=== PATIENT | female | born 1950 | race African-American/Black ===

== ENCOUNTER 2018-12-20 20:22 | Emergency (ER) | payer SELFPAY ==
[~2018-12-20] VITALS: Ht 162.6 cm; Wt 122.9 kg
--- NOTE | 2018-12-20 20:33 | NUR ---
ED Nurse Note: Patient reports having chronic pain with increase of pain on the right posterior back x 2 weeks. Pt is AO x 4times, VSS, on room air no distress. ERMD seen Pt at bedside.
[2018-12-20] MEDS ORDERED: LOSARTAN POTAS100 MG ORAL (20:42)
[2018-12-20] MEDS ORDERED: HYDROCHLOROTHIA25 MG ORAL (20:42)
[2018-12-20] MEDS ORDERED: ASPIR 8181 MG ORAL (20:42)
[2018-12-20] MEDS ORDERED: HYDRALAZIN20 MG/1 ML IJ (20:42)
[2018-12-20] MEDS ORDERED: METFORMIN HYD1000 GM MC (20:42)
[2018-12-20] MEDS ORDERED: VOLTAREN25 MG PO (20:42)
[2018-12-20] MEDS ORDERED: LEVOTHYROXINE200 MCG IV (20:42)
[2018-12-20] MEDS ORDERED: LUBRICANT DRY E15 ML OP (20:42)
[2018-12-20] MEDS ORDERED: NYSTATIN-TRIAMC15 G2 TP (20:42)
[2018-12-20] MEDS ORDERED: ZANTAC150 MG ORAL (20:42)
[2018-12-20] MEDS ORDERED: GLIPIZIDE10 MG PO (20:42)
[2018-12-20] MEDS ORDERED: METHOCARBAMOL500 M1 PO (20:42)
[2018-12-20] MEDS ORDERED: Ketorolac 60mg Inj IM ONE (21:00)
[2018-12-20] MEDS ORDERED: Methocarbamol 750mg tab ORAL ONE (21:00)
--- NOTE | 2018-12-20 21:05 | Emergency Room Report ---
History of Present Illness General Chief Complaint: Back Pain-No Injury Source: Patient Present Illness HPI Patient presents with complaints of right lower back pain Reports that the pain has been ongoing for the past 4 days Slowly worsening over the past 2 days Denies any fall denies any chest pain or shortness of breath denies any fevers or chills Denies any dysuria frequency denies any Saddle paresthesia Patient reports that she endplates with a cane secondary to her knee problems Denies any radiation of the pain she feels it is worse with ambulation and better with rest Allergies: Coded Allergies: ACETAMINOPHEN (Verified Allergy, Mild, Itching, 12/20/18) Patient History Past Medical History: see triage record Pertinent Family History: none Now: No : 3 Para: 3 Reviewed Nursing Documentation: PMH: Agreed; PSxH: Agreed Nursing Documentation-PMH Hx Cardiac Problems: Yes - TAKES LOW DOSE ASPIRIN Hx Hypertension: Yes Hx Diabetes: Yes Hx Gastrointestinal Problems: Yes Hx Neurological Problems: Yes - ARTHRITIS; HYPOTHYROID Review of Systems All Other Systems: negative except mentioned in HPI Physical Exam Vital Signs Date Time Temp Pulse Resp B/P (MAP) Pulse Ox O2 Delivery O2 Flow Rate FiO2 12/20/18 20:29 98.1 92 16 133/81 (98) 93 Room Air Sp02 EP Interpretation: reviewed, normal General Appearance: no apparent distress - Patient however has grimacing secondary to pain Head: normocephalic, atraumatic Eyes: bilateral eye PERRL, bilateral eye EOMI ENT: normal pharynx Neck: full range of motion, supple Respiratory: lungs clear, no respiratory distress, no retraction Cardiovascular #1: regular rate, rhythm Gastrointestinal: non tender, soft Musculoskeletal: other - Tender on palpation of the right posterior superior iliac crest no obvious midline step-off. Sensory intact bilaterally Neurologic: alert, oriented x3, responsive, other - Patient flexion-extension of both feet intact Psychiatric: normal inspection Skin: no rash Lymphatic: no adenopathy Medical Decision Making Diagnostic Impression: Primary Impression: Back pain ER Course Given the initial history exam and presentation multiple differentials and consideration including but not limited to musculoskeletal, neurological, neurosurgical, vascular pathology Patient has fairly specific pinpoint discomfort to the Right posterior superior iliac crest region Given the age and presentation imaging and blood work is obtained on arrival CT imaging does reveal some arthritic changes along with foraminal stenosis Patient's blood work also revealed some mild anemia I did discuss this with the patient and she reports knowledge of anemia from past patient was provided CT imaging and blood work for her records on repeat evaluation feels significantly improved and is stable for close outpatient follow-up Labs Test 12/20/18 20:45 12/20/18 21:00 Urine Color Yellow Urine Appearance Clear Urine pH 6 (4.5-8.0) Urine Specific [place] 1.015 (1.005-1.035) Urine Protein Negative (NEGATIVE) Urine Glucose (UA) Negative (NEGATIVE) Urine Ketones Negative (NEGATIVE) Urine Blood Negative (NEGATIVE) Urine Nitrite Negative (NEGATIVE) Urine Bilirubin Negative (NEGATIVE) Urine Urobilinogen 4 MG/DL (0.0-1.0) Urine Leukocyte Esterase 1+ (NEGATIVE) Urine RBC 0-2 /HPF (0 - 2) Urine WBC 0-2 /HPF (0 - 2) Urine Squamous Epithelial Cells Few /LPF (NONE/OCC) Urine Bacteria Few /HPF (NONE) White Blood Count 12.1 K/UL (4.8-10.8) Red Blood Count 3.95 M/UL (4.20-5.40) Hemoglobin 9.5 G/DL (12.0-16.0) Hematocrit 28.9 % (37.0-47.0) Mean Corpuscular Volume 73 FL (80-99) Mean Corpuscular Hemoglobin 24.0 PG (27.0-31.0) Mean Corpuscular Hemoglobin Concent 32.7 G/DL (32.0-36.0) Red Cell Distribution Width 16.0 % (11.6-14.8) Platelet Count 349 K/UL (150-450) Mean Platelet Volume 6.0 FL (6.5-10.1) Neutrophils (%) (Auto) 45.1 % (45.0-75.0) Lymphocytes (%) (Auto) 46.4 % (20.0-45.0) Monocytes (%) (Auto) 6.1 % (1.0-10.0) Eosinophils (%) (Auto) 1.2 % (0.0-3.0) Basophils (%) (Auto) 1.2 % (0.0-2.0) Sodium Level 138 MMOL/L (136-145) Potassium Level 3.7 MMOL/L (3.5-5.1) Chloride Level 101 MMOL/L (98-107) Carbon Dioxide Level 29 MMOL/L (21-32) Anion Gap 8 mmol/L (5-15) Blood Urea Nitrogen 23 mg/dL (7-18) Creatinine 1.1 MG/DL (0.55-1.30) Estimat Glomerular Filtration Rate 49.4 mL/min (>60) Glucose Level 58 MG/DL (74-106) Calcium Level 9.3 MG/DL (8.5-10.1) Total Bilirubin 0.3 MG/DL (0.2-1.0) Aspartate Amino Transf (AST/SGOT) 41 U/L (15-37) Alanine Aminotransferase (ALT/SGPT) 38 U/L (12-78) Alkaline Phosphatase 89 U/L (46-116) Total Protein 8.3 G/DL (6.4-8.2) Albumin 3.5 G/DL (3.4-5.0) Globulin 4.8 g/dL Albumin/Globulin Ratio 0.7 (1.0-2.7) CT/MRI/US Diagnostic Results CT/MRI/US Diagnostic Results : Impression CT L-spineIMPRESSION: Degenerative changes of the lumbar spine with areas of neural foraminal narrowing and spinal canal stenosis as described above. Severe spinal canal stenosis is suspected at L4-L5. This could better be evaluated with MRI if the patient can tolerate MRI. Last Vital Signs Date Time Temp Pulse Resp B/P (MAP) Pulse Ox O2 Delivery O2 Flow Rate FiO2 12/20/18 20:29 98.1 92 16 133/81 (98) 93 Room Air Status: improved Disposition: HOME, SELF-CARE Condition: Improved Scripts Methocarbamol* (ROBAXIN-750*) 750 Mg Tablet 750 MG PO TID, #21 TAB 0 Refills Prov: Lyudmila Argueta DO 12/20/18 Methylprednisolone (Methylprednisolone*) 4MG Dspk 4 MG ORAL DIRECTED for 6 Days, #21 EA 0 Refills Day 1: Two tablets before breakfast, one after lunch, one after dinner, and two at bedtime. If started late in the day, take all six tablets at once or divide into two or three doses, unless otherwise directed by prescriber. Day 2: One tablet before breakfast, one after lunch, one after dinner, and two at bedtime Day 3: One tablet before breakfast, one after lunch, one after dinner, and one at bedtime Day 4: One tablet before breakfast, one after lunch, and one at bedtime Day 5: One tablet before breakfast and one at bedtime Day 6: One tablet before breakfast Prov: Lyudmila Argueta DO 12/20/18 Additional Instructions: Patient is provided with the discharge instructions notified to follow up with primary doctor in the next 2-3 days otherwise return to the er with any worsening symptoms. Please note that this report is being documented using [employer] technology. This can lead to erroneous entry secondary to incorrect interpretation by the dictating instrument. Lyudmila Argueta DO Dec 20, 2018 21:05
--- NOTE | 2018-12-20 21:10 | NUR ---
ED Nurse Note: Urine and blood sample sent to lab.
--- NOTE | 2018-12-20 21:12 | NUR ---
ED Nurse Note: Pt went to Ct scan.
[2018-12-20 21:14] VITALS: BP 150/88
[2018-12-20 21:37] LABS: APPEARANCE,URINE CLEAR; BILIRUBIN, URINE NEGATIVE (NEGATIVE); GLUCOSE, URINE (UA) NEGATIVE (NEGATIVE); KETONES,URINE NEGATIVE (NEGATIVE); LEUKOCYTE ESTERASE ,URINE 1+ (NEGATIVE); NITRITE,URINE NEGATIVE (NEGATIVE); PH,URINE 6 (4.5-8.0); PROTEIN,URINE NEGATIVE (NEGATIVE); UROBILINOGEN,URINE 4 MG/DL (0.0-1.0)
[2018-12-20 21:37] LABS: BASOPHILS % (AUTO) 1.2 % (0.0-2.0); EOSINOPHILS % (AUTO) 1.2 % (0.0-3.0); HEMATOCRIT 28.9 % (37.0-47.0); HEMOGLOBIN 9.5 G/DL (12.0-16.0); LYMPHOCYTES % (AUTO) 46.4 % (20.0-45.0); MEAN CORPUSCULAR VOLUME 73 FL (80-99); MONOCYTES % (AUTO) 6.1 % (1.0-10.0); NEUTROPHILS % (AUTO) 45.1 % (45.0-75.0); PLATELET COUNT 349 K/UL (150-450); RED BLOOD COUNT 3.95 M/UL (4.20-5.40); WHITE BLOOD COUNT 12.1 K/UL (4.8-10.8)
[2018-12-20 21:39] LABS: COLOR,URINE YELLOW
[2018-12-20 21:43] LABS: ANION GAP 8 mmol/L (5-15); BLOOD UREA NITROGEN 23 mg/dL (7-18); CALCIUM 9.3 MG/DL (8.5-10.1); CARBON DIOXIDE 29 MMOL/L (21-32); CHLORIDE 101 MMOL/L (98-107); CREATININE 1.1 MG/DL (0.55-1.30); POTASSIUM 3.7 MMOL/L (3.5-5.1); SODIUM 138 MMOL/L (136-145)
[2018-12-20 21:48] LABS: ALANINE AMINOTRANSFERASE 38 U/L (12-78); ALBUMIN 3.5 G/DL (3.4-5.0); ALBUMIN/GLOBULIN RATIO 0.7 (1.0-2.7); ALKALINE PHOSPHATASE 89 U/L (46-116); ASPARTATE AMINO TRANSFERASE 41 U/L (15-37); BILIRUBIN,TOTAL 0.3 MG/DL (0.2-1.0)
--- NOTE | 2018-12-20 21:56 | Diagnostic Imaging Report ---
EXAM: CT Lumbar Spine Without Intravenous Contrast CLINICAL HISTORY: PAIN TECHNIQUE: Axial computed tomography images of the lumbar spine without intravenous contrast. CTDI is 0.39, 25.42 mGy and DLP is 707 mGy-cm. One or more of the following dose reduction techniques were used: automated exposure control, adjustment of the mA and/or kV according to patient size, use of iterative reconstruction technique. Coronal and sagittal reformatted images were created and reviewed. COMPARISON: No relevant prior studies available. FINDINGS: Limitations: Evaluation is limited secondary to a large amount of artifact from the patient's body habitus. Vertebrae: No definite CT evidence for acute lumbar spine fracture. Anterior and posterior osteophytes are seen at multiple levels. Discs/spinal canal/neural foramina: Degenerative changes of the sacroiliac joints. At L2-L3, moderate left neural foraminal narrowing is suspected secondary to disc osteophyte complex. Degenerative changes of the facet joints are also noted at this level. At L3-L4, mild to moderate right neural foraminal narrowing is suspected secondary to disc osteophyte complex. At L4-L5, grade 1 anterolisthesis is noted. Degenerative changes of the facet joints are also noted at this level. Severe spinal canal stenosis is suspected at this level. Moderate bilateral neural foraminal narrowing is also suspected. This could better be evaluated with MRI if the patient can tolerate MRI. At L5-S1, moderate to severe right neural foraminal narrowing is suspected secondary to disc osteophyte complex. Degenerative changes of the facet joints are also noted at this level. Soft tissues: Grossly unremarkable. IMPRESSION: Degenerative changes of the lumbar spine with areas of neural foraminal narrowing and spinal canal stenosis as described above. Severe spinal canal stenosis is suspected at L4-L5. This could better be evaluated with MRI if the patient can tolerate MRI. <MYCVCSECTION> [employer] 12/20/18 22:07 Verify Receipt Verified receipt with [employer], given to Lyudmila Argueta MD on 12/20 22:07 (-07:00)
[2018-12-20] MEDS ORDERED: ROBAXIN-750750 MG PO (22:05)
[2018-12-20] MEDS ORDERED: MEDROL DOSEPAK4 MG ORAL (22:05)
[2018-12-20 22:16] VITALS: BP 144/60
[2018-12-20 22:17] VITALS: BP 144/60
--- NOTE | 2018-12-20 22:17 | NUR ---
ER DISCHARGE NOTE: Patient is cleared to be discharged per ERMD, pt is aox4, on room air, with stable vital signs. pt was given dc and prescription instructions, pt was able to verbalize understanding, pt id band removed without complications. pt is able to ambulate with steady gait. pt took all belongings.
== END 2018-12-20 22:17 | disposition home or self-care (01) ==
LOC: EMR 20:40
DX: M54.5 Low back pain (principal); I10 Essential (primary) hypertension; E11.9 Type 2 diabetes mellitus without complications; E03.9 Hypothyroidism, unspecified; Z79.82 Long term (current) use of aspirin; Z88.6 Allergy status to analgesic agent
CPT/HCPCS: 36415; 72131; 80053; 81003; 85025; 96372; 99284